=== PATIENT | male | born 1960 | race Caucasian/White ===

== ENCOUNTER → 2016-08-30 | Outpatient (CLI) | payer BC, MEDICARE ==
[~2016-08-30] MED LIST: ANEXSIA 7.5/3251 TA1 PO; CALCIUM + D 6001 TA1 PO; CRESTOR; DIOVAN; HYDROCODONE-APA1 T45; LIPITOR40 MG PO; METFORMIN PO; PROTONIX PO; VITAMIN D400 UNI2 PO
--- NOTE | ~2016-08-30 | EKG ---
PATIENT: SAMUEL RIVERA UNIT #: [id number] Ventricular Rate: 64 BPM Atrial Rate: 64 BPM P-R Interval: 148 ms QRS Duration: 90 ms Q-T Interval: 390 ms QTC Calculation(Bezet): 402 ms P Boyce: 27 degrees Calculated R Boyce: 9 degrees Calculated T Boyce: 28 degrees Diagnosis Line: Normal sinus rhythm Diagnosis Line: Normal ECG Diagnosis Line: No previous ECGs available Diagnosis Line: Confirmed by FANNY CLARK MD ([id number]) on Diagnosis Line: 09/01/2016 11:14:06 PM INTERPRETING MD: AMBER BUSH
[2016-08-30 09:55] LABS: HEMATOCRIT 43.5 % (38.0-50.0); HEMOGLOBIN 14.5 gm/dL (13.0-16.0); MEAN CELL VOLUME 91.5 FL (83-96); MEAN CORPUSCULAR HEMOGLOBIN 30.6 PG (28-34); MEAN CORPUSCULAR HGB CONC 33.5 g/dL (30-36); MEAN PLATELET VOLUME 7.4 FL (6.5-11.5); RED BLOOD COUNT 4.75 X10e (3.90-5.60); RED CELL DISTRIBUTION WIDTH 13.3 % (11.0-15.5); WHITE BLOOD COUNT 8.3 X10e3 (4.0-10.5)
[2016-08-30 10:56] LABS: BUN/CREATININE RATIO 12.72; CREATININE SERUM 1.1 mg/dL (0.6-1.4); GLOM FILT RATE Estimated 74.7 mL/min (>60); POTASSIUM 4.7 mmol/L (3.5-5.1)
== END | disposition home or self-care (01) ==
LOC: CLAB 09:11
PROVIDERS: Urology
DX: Z01.818 Encounter for other preprocedural examination (principal); R97.20 Elevated prostate specific antigen [PSA]; E11.9 Type 2 diabetes mellitus without complications; I10 Essential (primary) hypertension; Z80.42 Family history of malignant neoplasm of prostate
CPT/HCPCS: 36415; 80048; 85027; 93005